=== PATIENT | female | born 1965 | race Caucasian/White ===

== ENCOUNTER → 2018-04-23 | Day surgery (SDC) | payer BC ==
[~2018-04-23] MED LIST: Benzocaine 20% Oral Spray 59.2 ML Canister MUCMEM ONE; Lactated Ringers 1,000 ML IV SCH; Midazolam 1 MG/ML 2 ML SDV IV ONE; Midazolam 1 MG/ML 2 ML SDV ONE; fentaNYL 100 MCG/2 ML SDV IV ONE; fentaNYL 100 MCG/2 ML SDV ONE
--- NOTE | 2018-04-23 11:30 | OR ---
DATE OF OPERATION: 04/23/2018 PREOPERATIVE DIAGNOSIS: CHRONIC ABDOMINAL PAIN. POSTOPERATIVE DIAGNOSIS: CHRONIC ABDOMINAL PAIN. SURGEON: Aureliano López MD PROCEDURE: TOTAL COLONOSCOPY. ANESTHESIA: Conscious sedation. SPECIMEN: None. FINDINGS: Normal colonoscopy. RECOMMENDATIONS: Followup colonoscopy for polyp screening in 10 years. INDICATION FOR PROCEDURE: This 52-year-old female has chronic abdominal pain. A lot of this is epigastric pain, and she states she has to massage the abdomen for bowel function. She had a prior colonoscopy several years ago that was normal. DESCRIPTION OF PROCEDURE: After adequate preparation, the colonoscope was inserted into the rectum. This was quite difficult actually to pass all the way to the cecum. She required extra Versed for pain control and amnesia. The bowel prep was very good, however, and I was able to get all the way to the cecum. A photograph of the ileocecal valve was taken, and by palpation, I was in the right lower quadrant. No abnormalities were noted on withdrawal of the scope. Anal and rectal examination was also normal. Air was suctioned from the colon and the scope removed. NATHALIE/ISABELLE /[id number]
--- NOTE | 2018-04-23 11:30 | OR ---
DATE OF OPERATION: 04/23/2018 PREOPERATIVE DIAGNOSIS: EPIGASTRIC ABDOMINAL PAIN. POSTOPERATIVE DIAGNOSIS: EPIGASTRIC ABDOMINAL PAIN. SURGEON: Aureliano López MD PROCEDURE: ESOPHAGOGASTRODUODENOSCOPY. ANESTHESIA: Conscious sedation. SPECIMEN: A MICAH biopsy of the gastric antrum. FINDINGS: Normal EGD. INDICATION FOR PROCEDURE: This 52-year-old female has continuous epigastric and left upper quadrant abdominal pain. DESCRIPTION OF PROCEDURE: After adequate preparation, a gastroscope was inserted into the esophagus. This was passed down to the distal esophagus. She shows no evidence of hiatal hernia or reflux esophagitis. Photograph of the EG junction was taken. The scope was advanced into the stomach, and the stomach was insufflated. The only unusual occurrence was really quite a large amount of fluid within the stomach which, if she is n.p.o., is a little bit unusual. There are no lesions. However, she does not present with gastritis or masses or ulcers. I did a MICAH biopsy in the prepyloric antral area of the stomach. The scope was advanced through the pylorus into the duodenum. Examination of the first, second, and third part of the duodenum was also normal. Air was suctioned from the stomach and the scope removed. NATHALIE/ISABELLE /[id number]
== END ==
LOC: CC.SDS 07:19
PROVIDERS: ATTEND Surgery
DX: R10.13 Epigastric pain (principal); F41.9 Anxiety disorder, unspecified; K21.9 Gastro-esophageal reflux disease without esophagitis; E78.00 Pure hypercholesterolemia, unspecified; Z79.82 Long term (current) use of aspirin; Z79.899 Other long term (current) drug therapy; Z87.891 Personal history of nicotine dependence
CPT/HCPCS: 43239; 45378; 87081; J2250; J3010; J7120